=== PATIENT | male | born 1970 | race Caucasian/White ===

== ENCOUNTER → 2022-10-28 | Outpatient (CLI) | payer OTHER, SELFPAY ==
[2022-10-28 11:24] LABS: Absolute Lymphocyte Count 2.48 X10^3/uL (0.83-4.51); Absolute Neutrophil Count 3.4 X10^3/uL (2.0-7.7); Basophil# 0.06 X10^3/uL; Basophil% 0.9 % (0-1); Eosinophil# 0.12 X10^3/uL; Eosinophils% 1.8 % (0-5); Hematocrit 43.3 % (40-54); Hemoglobin 14.4 g/dL (13.0-16.5); Lymphocyte # 2.48 X10^3/ul (0.83-4.51); Lymphocyte % 36.6 % (19-41); Mean Corp Hgb Conc 33.3 g/dL (32-36); Mean Corpuscular Hgb 32.3 pg (27.0-32.0); Mean Corpuscular Volume 97.1 fL (80-94); Mean Platelet Vol. 9.2 fl (6.2-12.0); Monocyte# 0.65 X10^3/uL; Monocyte% 9.6 % (0-10); NRBC Flagged by Analyzer 0 % (0-5); Neutrophil # 3.43 X10^3/uL (2.7-7.7); Neutrophil % 50.7 % (47-70); Platelet Count 335 K/mm3 (150-450); RBC Distribution Width SD 46.5 fl (35.1-43.9); Red Blood Count 4.46 M/mm3 (4.6-6.2); White Blood Count 6.8 K/mm3 (4.4-11.0)
[2022-10-28 11:45] LABS: Anion Gap 3 (5-15); BUN 17 mg/dL (7-18); BUN/Creat Ratio 13.7 RATIO (10-20); Chloride 105 mmol/L (98-107); Creatinine, Serum 1.24 mg/dL (0.70-1.30); EST Glomerular Filtration Rate 65 mL/min (>60); Est Glom Filt Rate - Afr Amer 79 mL/min (>60); Glucose 109 mg/dL (74-106); Potassium 4.1 mmol/L (3.5-5.1); Sodium Level 136 mmol/L (136-145)
== END | disposition home or self-care (01) ==
PROVIDERS: PCP Family Medicine; Referring Provider Student in an Organized Health Care Education/Training Program; Visit Provider Student in an Organized Health Care Education/Training Program
DX: Z01.810 Encounter for preprocedural cardiovascular examination (principal); Z01.818 Encounter for other preprocedural examination
CPT/HCPCS: 36415; 80048; 85025; 93005

== ENCOUNTER 2023-01-08 18:00 | Outpatient (RCR) | payer OTHER, SELFPAY ==
--- NOTE | 2022-11-18 18:09 | HP.PTEVAL_ITS ---
Patient's Visit Information MARIA EUGENIA WALLACE is a 52 year old M referred to Physical Therapy by OTILIA Mcdonald with a diagnosis of L biceps repair 10/28/22, biceps tear.. Date of Evaluation: 11/18/22 Physical Therapist: Toño Hernandez, AGAPITO, OCS, CSCS - Visit Plan Frequency: 1x/Week Duration: 4-6 Weeks Plan: 1-2x/week x 4-6 weeks as needed for progression of pronation and flexion ROM and progress to strengthen. P-AROM until 12/02/22, then some gentle rehab after that. 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 Hurt immediately and was hanging on by thread according to MRI. Fixed on 10/28/22 3 weeks ago. In a sling for 2 weeks and off a week ago. had oxycodone for 2 weeks now acetominophen and ibuprofen. Is in a little achy pain at end of day and uses ice. 09/26. sleep is OK. Exercises: none now, precaution is nothing over 2#, no quick extension. 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 Is working and is slower ont he keyboard. Basic ADLs are getting done. 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 Wants to get stronger and feels motion is limited. - Pain L forearm, elbow Pain Intensity (Out of 10): 0 Pain Intensity Range: 0, 3 - Objective Walks I and trasnfers I without using L hand but swinging normally. Cervical aROM WFL and without pain, scapular AROM WNL. shoulder AROM WNL and symmetrical without pain. elbow AROM L to 125 adn r to 135, PROM increases quickly. pronation 65 L and 90 R, supination 85 B. Missing 10 bending on L and missing 25 pronation. scar anterior on L is not tender and no signs of excessive redness heat or swelling, mostly healed and mild scar tissue palpable. Strength L triceps 4, shoulder 4, biceps not tested, wrist 4...r side 4+. - Balance/Special Test Scores Quick DASH Score: 29.5450 - Goals Goal 1:: Full aROM L elbow and wrist without pain Goal Time Frame: 4-6 Weeks Goal 2:: Plan to return to full go strengthening as allowed by doctor. Goal Time Frame: 4-6 Weeks Goal 3:: I management of condition Goal Time Frame: 4-6 Weeks Goal 4:: Quickdash score 15 or better Goal Time Frame: 4-6 Weeks - Rehabilitation Potential Physical Therapy Diagnosis: s/p l biceps repair Rehabilitation Potential: Good - Anticipated Interventions Patient/Client Instruction: Educate patient on: Condition, Plan of Care For the Purpose of:: To decrease pain, To increase ROM, To improve nutrient delivery to tissue, To increase tolerance to activity/condition/position, To improve ability of physical actions for home/community/work/leisure, To improve gait and locomotor functions Therapeutic Exercise to Include: Strength training, Flexibilty training, Passive ROM, Active ROM For the Purpose of:: To decrease pain, To increase ROM, To improve nutrient delivery to tissue, To improve muscle performance and motor function Manual Therapy Techniques to Include: Scar massage, Soft tissue mobilization For the Purpose of:: To decrease pain, To increase ROM, To improve nutrient delivery to tissue, To improve muscle performance and motor function, To increase tolerance to activity/condition/position Cryotherapy (ice pack, ice massage): Yes For the Purpose of:: To decrease pain Thank you for the opportunity to evaluate your patient. For Medicare and Medicare HMO plans, please review the plan of care and approve it. It will need to be FAXED BACK to us at [phone] for Medicare purposes. For Medicare only, by signing this I certify the plan of care. Please let me know if there are questions or concerns regarding this plan of care. Physician Signature: Date:
--- NOTE | 2023-01-08 18:30 | HP.PTDCSUM ---
It has been my pleasure to treat MARIA EUGENIA WALLACE referred by OTILIA Mcdonald, with the diagnosis of L biceps repair 10/28/22, biceps tear. for a total of 5 visit(s). Discharge Date: 01/08/23 Please see the following information for a summary of their discharge status. Subjective: Doing well, no problems. No pain. Blue band with all exercises 3x10. Sleeping well. 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 Some maitenance stuff but avoids heavier. Has not and will not get back on ice. Hobbies at home are close to normal. Has shot pistol and rifle without difficulty. Mowed lawn with walk behind, avoided weed whacking. House chores are OK. Golf is out for this season. L forearm, elbow Pain Intensity (Out of 10): 0 % Improvement: 75 Objective/Function: Full aROM L elbow and shoulder without pain. Strength L elbow supination and biceps 4- vs 4+ on R. shoulder strength 4+ B except flexion 4 on L. Pt doing very well with the numbers and seems to understand the improtance of slow steady progressions with exercises adn any new activities. he is not to golf this season according to doctor but otherwise just listen to his body. he does not know when or if f/u with doctor. Goal 1:: Full aROM L elbow and wrist without pain Goal Progress: Goal Met Goal 2:: Plan to return to full go strengthening as allowed by doctor. Goal Progress: Progressing Goal 3:: I management of condition Goal Progress: Goal Met Goal 4:: Quickdash score 15 or better Goal Progress: Progressing Plan: d/c, Discharge Comments: Pt to f/u with doctor as and when directed. otherwise continue HEP 3x/week and call if problems. If there are questions or concerns regarding this patient's physical therapy, please feel free to call me at [phone]. Thank you for the referral of this patient. Sincerely, Toño Hernandez, DPT, OCS, CSCS Balance/Gait/Functional tests - Balance/Special Test Scores Quick DASH Score: 11.3622
== END 2023-01-08 19:00 | disposition home or self-care (01) ==
LOC: PT 18:00
PROVIDERS: PCP Family Medicine; Referring Provider Physician Assistant Surgical; Visit Provider Physician Assistant Surgical
DX: S46.212D Strain of muscle, fascia and tendon of other parts of biceps, left arm, subsequent encounter (principal)
CPT/HCPCS: 97110; 97161